=== PATIENT | male | born 1960 | race African-American/Black ===

== ENCOUNTER → 2018-12-02 | Outpatient (CLI) | payer MEDICARE, OTHER ==
--- NOTE | 2018-12-02 10:07 | RADIOLOGY REPORT (SQ) ---
EXAM DESCRIPTION: MRI PELVIS COMBO COMPLETED DATE/TIME: 12/02/2018 9:19 am REASON FOR STUDY: RECTAL POLYP K62.0 ANAL POLYP COMPARISON: CT abdomen pelvis 10/17/2012 TECHNIQUE: Multiplanar multisequence imaging without and with contrast including axial, sagittal and coronal fat sat T2, axial and coronal T1, axial and coronal T1 post contrast. CONTRAST TYPE AND DOSE: 15 mL RENAL FUNCTION: Not indicated. ACR Type II contrast agent associated with few, if any, unconfounded cases of NSF LIMITATIONS: None. FINDINGS: PROSTATE: Post prostatectomy SEMINAL VESICLES: Surgically absent PELVIS: No masses. No adenopathy. BLADDER: Normal. PELVIS SKELETAL STRUCTURES: No abnormal marrow signal. EXTRA PELVIC SOFT TISSUES: No masses. RECTUM AND ANUS: There is very subtle asymmetric rectal wall thickening on the left at the rectosigmo id junction on axial images 12-14. Rectal wall measures 7 mm in thickness on axial T1 image 13/32 wi thout a well-circumscribed mass. This finding is difficult to reproduce on the coronal and sagittal imaging. Clinical correlation recommended. IMPRESSION: Subtle asymmetric leftward rectal wall thickening versus artifact, at the rectosigmoid j unction. Clinical correlation recommended. Post prostatectomy. No pelvic adenopathy, masses, or free fluid. TECHNICAL DOCUMENTATION: JOB ID: [id number] [employer]- All Rights Reserved Reading location - IP/workstation name: [email or web address]
== END ==
LOC: RAD 08:18
PROVIDERS: ATTEND Surgery
DX: K62.0 Anal polyp (principal)
CPT/HCPCS: 82565; 72197; A9576

== ENCOUNTER 2019-01-26 05:28 | Day surgery (SDC) | payer MEDICARE, OTHER ==
--- NOTE | 2019-01-19 10:21 | RADIOLOGY REPORT (SQ) ---
EXAM DESCRIPTION: CHEST PA/LATERAL COMPLETED DATE/TIME: 01/19/2019 10:09 am REASON FOR STUDY: PRE-OP COMPARISON: None. EXAM PARAMETERS: NUMBER OF VIEWS: two views TECHNIQUE: Digital Frontal and Lateral radiographic views of the chest acquired. RADIATION DOSE: NA LIMITATIONS: none FINDINGS: LUNGS AND PLEURA: No opacities, masses or pneumothorax. No pleural effusion. MEDIASTINUM AND HILAR STRUCTURES: No masses or contour abnormalities. HEART AND VASCULAR STRUCTURES: Heart normal size. No evidence for failure. BONES: No acute findings. HARDWARE: None in the chest. OTHER: No other significant finding. IMPRESSION: NO SIGNIFICANT RADIOGRAPHIC FINDING IN THE CHEST. TECHNICAL DOCUMENTATION: JOB ID: [id number] [employer]- All Rights Reserved Reading location - IP/workstation name: [email or web address]
[2019-01-19 10:34] LABS: ABSOLUTE BASOPHILS # (AUTO) 0.1 10^3/uL (0.0-0.2); ABSOLUTE EOSINOPHILS # (AUTO) 0.1 10^3/uL (0.0-0.6); ABSOLUTE LYMPHOCYTES (AUTO) 1.6 10^3/uL (0.5-4.7); ABSOLUTE MONOCYTES (AUTO) 0.7 10^3/uL (0.1-1.4); ABSOLUTE NEUT (AUTO) 2.1 10^3/uL (1.7-8.2); BASOPHILS % (AUTO) 1.9 % (0-2); EOSINOPHILS % (AUTO) 3.1 % (0-6); HEMATOCRIT 42.7 % (37.9-51.0); HEMOGLOBIN 14.5 g/dL (13.5-17.0); LYMPHOCYTES % (AUTO) 34.9 % (13-45); MEAN CORPUSCULAR VOLUME 88 fl (80-97); MONOCYTES % (AUTO) 15.3 % (3-13); PLATELET COUNT 265 10^3/uL (150-450); RED BLOOD COUNT 4.84 10^6/uL (4.35-5.55); RED CELL DISTRIBUTION WIDTH 13.2 % (11.5-14.0); SEGMENTED NEUTROPHILS % (AUTO) 44.8 % (42-78); TOTAL CELLS COUNTED % (AUTO) 100 %; WHITE BLOOD COUNT 4.6 10^3/uL (4.0-10.5)
[2019-01-19 11:07] LABS: ALANINE AMINOTRANSFERASE 23 U/L (21-72); ALBUMIN 4.2 g/dL (3.5-5.0); ALKALINE PHOSPHATASE 82 U/L (38-126); ANION GAP 10 (5-19); ASPARTATE AMINO TRANSFERASE 23 U/L (17-59); BILIRUBIN,DIRECT 0.3 mg/dL (0.0-0.4); BILIRUBIN,TOTAL 1.1 mg/dL (0.2-1.3); BLOOD UREA NITROGEN 22 mg/dL (7-20); CALCIUM 9.4 mg/dL (8.4-10.2); CARBON DIOXIDE 26 mmol/L (22-30); CHLORIDE 106 mmol/L (98-107); GLUCOSE 104 mg/dL (75-110); POTASSIUM 4.7 mmol/L (3.6-5.0); SODIUM 142.3 mmol/L (137-145)
--- NOTE | 2019-01-19 20:06 | EKG REPORT ---
SEVERITY:- ABNORMAL ECG - SINUS RHYTHM LEFT ANTERIOR FASCICULAR BLOCK LEFT VENTRICULAR HYPERTROPHY : Confirmed by: Kasie Maya MD 19-Jan-2019 20:06:06
[~2019-01-26 05:28] MED LIST: CEFAZOLIN 1 GM/D5W RTU 1 GM/50 ML RTUPB IV PRN; LACTATED RINGERS 1000 ML IV PRN; LIDOCAINE 0.5% INJ-PF (5 MG/ML) 50 ML SDV SUBCUT PRN; METRONIDAZOLE 500 MG/NS RTU 500 MG/100 ML RTUPB IV PRN
[2019-01-26] MEDS ORDERED: METRONIDAZOLE 500 MG/NS RTU 500 MG/100 ML RTUPB IV ONE (05:34)
[2019-01-26] MEDS ORDERED: CEFAZOLIN 1 GM/D5W RTU 1 GM/50 ML RTUPB IV ONE (05:34)
[2019-01-26] MEDS ORDERED: EPHEDRINE SULFATE INJ 50 MG/1 ML AMPULE ONE (07:02)
[2019-01-26] MEDS ORDERED: MIDAZOLAM 2 MG/2 ML INJ ONE (07:02)
[2019-01-26] MEDS ORDERED: FENTANYL CITRATE INJ/PF 100 MCG/2 ML AMPUL ONE (07:02)
[2019-01-26] MEDS ORDERED: DEXAMETHASONE SOD PHOSPHATE INJ 4 MG/1 ML VIAL ONE (07:02)
[2019-01-26] MEDS ORDERED: PROPOFOL INJ 200 MG/20 ML VIAL IV ONE (07:03)
[2019-01-26] MEDS ORDERED: ONDANSETRON HCL INJ/PF 4 MG/2 ML SDV ONE (07:03)
[2019-01-26] MEDS ORDERED: BUPIVACAINE HCL 0.25% /EPINEPHRINE INJ/PF 30 ML SDV ONE (07:20)
[2019-01-26] MEDS ORDERED: LIDOCAINE 1%/EPINEPHRINE INJ 20 ML VIAL INJ ONE (08:18)
[2019-01-26] MEDS ORDERED: MEPERIDINE HCL/PF INJ 25 MG/1 ML DISP.SYRIN IV PRN (08:21)
[2019-01-26] MEDS ORDERED: DIPHENHYDRAMINE HCL 50 MG/ML VIAL IV PRN (08:21)
[2019-01-26] MEDS ORDERED: PROMETHAZINE HCL INJ 25 MG/1 ML VIAL IV PRN ×2 (08:21)
[2019-01-26] MEDS ORDERED: ONDANSETRON HCL INJ/PF 4 MG/2 ML SDV IV PRN (08:21)
[2019-01-26] MEDS ORDERED: OXYCODONE-ACETAMINOPHEN 5-325 MG TABLET PO PRN ×3 (08:21→09:01)
[2019-01-26] MEDS ORDERED: FENTANYL CITRATE INJ/PF 100 MCG/2 ML AMPUL IV PRN ×3 (08:21)
[2019-01-26] MEDS ORDERED: MORPHINE SULFATE 10 MG/ML INJ IV PRN (08:21)
[2019-01-26] MEDS ORDERED: LIDOCAINE 1%/EPINEPHRINE INJ 20 ML VIAL ONE (08:22)
--- NOTE | 2019-01-26 09:01 | Operative Report ---
Nonrecallable Operative Report DATE OF SURGERY: 01/26/19 PREOPERATIVE DIAGNOSIS: Rectal lesion POSTOPERATIVE DIAGNOSIS: Rectal lesion OPERATION: Transanal l excision of rectal lesion SURGEON: SHAR TANG BANQUET SET UP PERSON: MARVIN BOLAÑOS ANESTHESIA: GA TISSUE REMOVED OR ALTERED: Rectal mucosa COMPLICATIONS: None ESTIMATED BLOOD LOSS: 25 INTRAOPERATIVE FINDINGS: See procedure note PROCEDURE: Patient was brought to the operating room and awake alert in stable condition placed in the operating table in supine position induced under general anesthesia intubated he was then placed in a jackknife position. After adequate prep and drape and site verification the short scope was placed into the rectum At the 12 o'clock position approximately 4 cm above the anal verge there was a rectal ulcer that had heaped up edges that was previously palpable on physical examination The lesion had a deep ulcer and there was some bleeding from it. Using the Bovie cautery an elliptical incision was made circumferentially around the lesion dissection was carried down through rectal mucosa into the rectal muscle and then this was excised with Bovie cautery was sent off for pathology Rectal mucosa was then reapproximated with a running 2-0 chromic suture. We then used the proctoscope and scope the patient for up to 20 cm with no evidence of any other mucosal abnormality Was then flipped over onto the gurney back to a supine position and extubated in the operating room This completed the procedure estimated blood loss was 25 cc sponge needle counts were correct x2 The patient was transferred to recovery in stable condition
--- NOTE | 2019-01-26 09:05 | Discharge Summary ---
Discharge Summary (SDC) - Discharge Final Diagnosis: Rectal lesion Date of Surgery: 01/26/19 Discharge Date: 01/26/19 Condition: Good Referrals: CHEYENNE HOWARD MD [Primary Care Provider] - Discharge Diet: As Tolerated Discharge Activity: Activity As Tolerated Report the Following to Your Physician Immediately: Nausea, Vomiting, Increase in Pain, Large Clots - he needs a follow-up with me 10 to 14 days postop
[2019-01-26] MEDS: MEPERIDINE HCL/PF INJ 25 MG/1 ML DISP.SYRIN ONE ×2 (09:15→09:25)
[2019-01-26] MEDS ORDERED: SUCCINYLCHOLINE CHLORIDE INJ 200 MG/10 ML VIAL ONE (12:08)
[2019-01-26 16:57] VITALS: BP 151/90
== END 2019-01-26 13:00 | disposition home or self-care (01) ==
LOC: OROUT 05:28
PROVIDERS: ATTEND Surgery
DX: K62.0 Anal polyp (principal); Z79.01 Long term (current) use of anticoagulants; C20 Malignant neoplasm of rectum
CPT/HCPCS: 93005; 36415; 85025; 80053; 88305 ×2; 71046; 93010; 00902; 45171; C1758; J2250; J0690; J1100; J3010; J3490 ×2; J2175; J0330; J2405; J2704; 902

== ENCOUNTER 2020-07-03 06:49 | Day surgery (SDC) | payer MEDICARE, OTHER ==
[2020-07-03] MEDS ORDERED: PROPOFOL INJ 200 MG/20 ML VIAL IV ONE (07:43)
--- NOTE | 2020-07-03 08:23 | Operative Report ---
Operative Report DATE OF SURGERY: 07/03/20 Operative Report: The risk, benefits and alternatives of the procedure including the risk of bleeding, perforation requiring surgery have been explained to the patient in detail and informed consent has been obtained. The patient is taken back to the endoscopy suite placed in the left, lateral decubital position. Timeout was called. Propofol medication is administered. Rectal examination is done which did not reveal any masses, tears or fissures. An Olympus videoscope was introduced into the patient's rectum. Scope was then carefully advanced to the cecum. Cecum was identified by the usual anatomical landmarks of the ileocecal valve as well as the appendiceal office. Photodocumentation is obtained. Scope was then sequentially pulled back via the various segments of the colon including the ascending colon, hepatic flexure, transverse colon, splenic flexure, descending colon and finally in to the rectosigmoid portions of the colon. Retroflexion maneuver is performed. PREOPERATIVE DIAGNOSIS: Previous history of rectal cancer. : Surveillance POSTOPERATIVE DIAGNOSIS: Random biopsies right side of the colon for mild inflammation. Normal terminal ileum. No recurrence of rectal cancer OPERATION: Colonoscopy with biopsy SURGEON: MAGO MACKEY ANESTHESIA: LMAC TISSUE REMOVED OR ALTERED: As noted above COMPLICATIONS: None. ESTIMATED BLOOD LOSS: None. INTRAOPERATIVE FINDINGS: As noted above. PROCEDURE: Patient tolerated the procedure well. No immediate postprocedure complications are noted. Patient is discharged in good condition. Discharge date 07/03/2020. Discharge diet: Regular. Discharge activity: Regular. 2 to 3-week follow-up to discuss findings. Wait on the pathology. Patient is instructed call the office or proceed to the emergency room should there be any further problems or questions. Wait on the pathology. 3-year surveillance colonoscopy
[2020-07-03 11:56] VITALS: BP 116/74
== END 2020-07-03 08:55 | disposition home or self-care (01) ==
LOC: END 06:49
PROVIDERS: ATTEND Internal Medicine Gastroenterology
DX: K52.9 Noninfective gastroenteritis and colitis, unspecified (principal); Z85.048 Personal history of other malignant neoplasm of rectum, rectosigmoid junction, and anus; G47.33 Obstructive sleep apnea (adult) (pediatric); Z85.46 Personal history of malignant neoplasm of prostate; Z92.3 Personal history of irradiation; Z90.79 Acquired absence of other genital organ(s); Z79.82 Long term (current) use of aspirin; Z79.899 Other long term (current) drug therapy; Z20.828 Contact with and (suspected) exposure to other viral communicable diseases
CPT/HCPCS: 45380; 88305 ×2; 00811; J2704; 811